=== PATIENT | male | born 1975 | race Two or more races ===

== ENCOUNTER 2017-08-19 17:49 | Emergency (ER) | payer MEDICAID ==
[~2017-08-19] VITALS: Ht 162.6 cm; Wt 68.0 kg
[2017-08-19 17:51] VITALS: BP 148/98
== END 2017-08-19 18:25 | disposition home or self-care (01) ==
LOC: ED 18:15
DX: L03.012 Cellulitis of left finger (principal)
CPT/HCPCS: 99283